=== PATIENT | male | born 1935 | race Caucasian/White ===

== ENCOUNTER 2020-07-24 19:05 | Emergency (ER) | payer MEDICARE, SELFPAY ==
[2020-07-24 19:05] VITALS: BP 159/80; PULSE 80; RESP 13; TEMP 36.8; O2SAT 96
--- NOTE | 2020-07-24 19:10 | ECG_ITS ---
Measurements Intervals [place] Rate: 77 P: NM: 0 QRS: -43 QRSD: 97 T: 0 QT: 178 QTc: 202 Interpretive Statements SINUS RHYTHM WITH FIRST DEGREE AV BLOCK VENTRICULAR BIGEMINY LEFT AXIS DEVIATION RSR' IN V1 OR V2, CONSIDER RIGHT VENTRICULAR HYPERTROPHY OR RIGHT VCD BORDERLINE ST-T WAVE ABNORMALITY- DIFFUSE LEADS BASELINE ARTIFACT- V3 ABNORMAL ECG Electronically Signed On 07-28-2020 13:25:08 CHARGE AUTHORIZER by Modesto Hanna D.O.
--- NOTE | 2020-07-24 19:38 | ED.GENADULT ---
HPI - General Adult General Chief complaint: Unspecified Stated complaint: AMS? Time Seen by Provider: 07/24/20 19:14 Source: patient Mode of arrival: EMS Limitations: no limitations History of Present Illness HPI narrative: Patient is 85 years old white male brought to the emergency room by police because he was driving [place] over the [place]. Patient brought his to our emergency room yesterday for transfer to [facility]. Patient stayed with his at [facility] since. He is telling me that he did not sleep for the last [address] back home from [facility] he got sleepy and was not able to control his driving. Currently patient is awake, alert and oriented x4, declined any lab work-up or any further evaluation. Patient also declined to call his children. Patient denies any fever, chills, nausea, vomiting, chest pain, shortness of breath, back pain, headache, sore throat or any symptoms. Patient is telling me that he uses a walker sometime, and his gait is not perfect because of his age and because of chronic arthritis. Patient would like to go home to get some sleep so can go back to visit his tomorrow. Currently patient on aspirin. Related Data Home Medications Medication Instructions Recorded Confirmed aspirin 81 mg tablet,delayed 81 mg PO DAILY 06/29/19 05/26/20 release furosemide 20 mg tablet 20 mg PO QAM 06/29/19 05/26/20 latanoprost 0.005 % eye drops 1 drop EACH EYE DAILY 06/29/19 05/26/20 ophthalmic irrigation solution drop EACH EYE 06/29/19 05/26/20 drops prednisone 5 mg tablet 5 mg PO DAILY 06/29/19 05/26/20 pyridostigmine bromide 60 mg tablet 60 mg PO BID 06/29/19 05/26/20 rosuvastatin 40 mg tablet 40 mg PO DAILY 06/29/19 05/26/20 Allergies Allergy/AdvReac Type Severity Reaction Status Date / Time No Known Allergies Allergy Mild Verified 05/26/20 15:12 Review of Systems Review of Systems: Narrative: CONSTITUTIONAL: Denies fever, chills, or sweats. EYES: Denies visual changes, redness, or discharge. ENT: Denies rhinorrhea, congestion, sore throat, or otalgia. CARDIOVASCULAR: Denies chest pain, palpitations, or edema. RESPIRATORY: Denies cough or dyspnea. GASTROINTESTINAL: Denies abdominal pain, nausea, vomiting, or diarrhea. GENITOURINARY: Denies dysuria or hematuria. SKIN: Denies rash or itching. MUSCULOSKELETAL: Denies back pain, joint pain, or myalgia. NEUROLOGIC: Denies headache, numbness, or weakness. PSYCHIATRIC: Denies anxiety or depression. 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 heart disease of [place] coronary artery without angina pectoris CAD (coronary artery disease) Chronic hypertension Hesitancy of micturition Impaired fasting glucose Mixed hyperlipidemia Myasthenia gravis Personal history of other diseases of the nervous system and sense organs Polyosteoarthritis, unspecified Surgical History Surgical History History of total knee arthroplasty S/P TURP Social History Social History Social History: Smoking status: Former smoker Second hand tobacco smoke exposure: No Smoking end date: 07/08/90 Alcohol intake: never Substance use: never Substance use type: does not use Gender identity (if verbalized by the patient): Male Exam Narrative: Exam Narrative: General appearance: Well-developed, well-nourished Skin: Normal color, 1+ edema lower extremity bilaterally Head: Normocephalic, nontraumatic Eyes: Clear conjunctiva ENT: Oropharynx normal, ears normal, nose normal Neck: Supple, nontender Chest and respiratory: Airway patent, no respiratory distress, no accessory muscle use Heart: irRegular heart rate Abdomen: Soft, nontender, no organomegaly, quiet bowel sounds Vascular: Normal periph
[2020-07-24 19:45] VITALS: BP 173/68; PULSE 80; RESP 17; TEMP 36.8; O2SAT 99
[2020-07-24 20:13] VITALS: BP 158/80; PULSE 71; RESP 19; TEMP 36.6; O2SAT 98
--- NOTE | 2020-07-24 20:14 | PC.NURSE ---
[employer] called and they state approximately 30 minute ETA to pick patient up at the ED to take him home.
== END 2020-07-24 20:24 | disposition left against medical advice (07) ==
PROVIDERS: Emergency Provider Emergency Medicine; PCP Family Medicine
DX: Z72.820 Sleep deprivation (principal); I25.10 Atherosclerotic heart disease of native coronary artery without angina pectoris; I10 Essential (primary) hypertension; E78.2 Mixed hyperlipidemia; G70.00 Myasthenia gravis without (acute) exacerbation; M19.90 Unspecified osteoarthritis, unspecified site; Z96.659 Presence of unspecified artificial knee joint; Z87.891 Personal history of nicotine dependence; I44.0 Atrioventricular block, first degree; R00.8 Other abnormalities of heart beat; R94.31 Abnormal electrocardiogram [ECG] [EKG]; Z79.82 Long term (current) use of aspirin
CPT/HCPCS: 93005; 99281; 99283

== ENCOUNTER 2021-10-19 18:11 | Emergency (ER) | payer MEDICARE, SELFPAY ==
[2021-10-19 18:33] VITALS: BP 133/80; PULSE 98; RESP 16; TEMP 36.4; O2SAT 100
--- NOTE | 2021-10-19 18:36 | ED.WOUNDLAC ---
HPI - Wound/Laceration General Chief Complaint: Wound/Laceration Stated Complaint: Left Leg Lac - glass Time Seen by Provider: 10/19/21 18:36 Source: patient Mode of arrival: ambulatory Limitations: no limitations History of Present Illness HPI narrative: 86-year-old with a history of hypertension, CAD, on Eliquis, myasthenia gravis here with complaints of laceration to his left leg sustained prior to coming to the ER. He states that he broke a bottle and he accidentally cut himself. He drove himself to the ER. Onset (ago): hour(s) (1) Extremity Location: Left: lower leg Place: home Context: accidental Associated symptoms: none Related Data Home Medications Medication Instructions Recorded Confirmed aspirin 81 mg tablet,delayed 81 mg PO DAILY 06/29/19 05/28/21 release furosemide 20 mg tablet 20 mg PO QAM 06/29/19 05/28/21 latanoprost 0.005 % eye drops 1 drop EACH EYE DAILY 06/29/19 05/28/21 ophthalmic irrigation solution drop EACH EYE 06/29/19 05/28/21 drops Allergies Allergy/AdvReac Type Severity Reaction Status Date / Time No Known Allergies Allergy Mild Verified 05/11/21 14:01 Review of Systems Review of Systems: All systems reviewed & are unremarkable except as noted in HPI and below Constitutional: Constitutional: Reports no additional constitutional complaints Eyes: Eyes: Reports no additional eye complaints ENT: Reports system reviewed and no additional complaints, except as documented Cardiovascular: Cardiovascular: Reports no additional cardiovascular complaints Respiratory: Respiratory: Reports no additional respiratory complaints Gastrointestinal: Gastrointestinal: Reports no additional gastrointestinal complaints Musculoskeletal: Musculoskeletal: Reports as per HPI Neurologic: Reports system reviewed and no additional complaints, except as documented [facility] Past Medical History Medical History 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 Atherosclerotic heart disease of [place] coronary artery without angina pectoris CAD (coronary artery disease) Chronic hypertension Hesitancy of micturition Impaired fasting glucose Mixed hyperlipidemia Myasthenia gravis Personal history of other diseases of the nervous system and sense organs Polyosteoarthritis, unspecified Surgical History Surgical History History of total knee arthroplasty S/P TURP Social History Social History Social History: Smoking status: Former smoker Tobacco type: cigarettes Second hand tobacco smoke exposure: No Smoking end date: 07/08/90 Alcohol intake: never Substance use: never Substance use type: does not use Gender identity (if verbalized by the patient): Male Sexual Orientation (if Verbalized by the Patient): Straight or Heterosexual Exam Narrative: GENERAL: Well-appearing, well-nourished, and in no acute distress. HEAD: Normocephalic, atraumatic. EYES: PERRLA and EOMI. NECK: Supple. CHEST: Clear to auscultation. No respiratory distress. HEART: Regular rate and rhythm. No murmur heard. Normal peripheral pulses. EXTREMITIES: Normal range of motion. No edema. This has a L-shaped laceration on the left lower leg with active bleeding about 3 cm in length SKIN: Warm, dry, no rash. NEURO: No focal deficits. Alert and oriented x3. PSYCH: Normal mood and affect. Procedures Laceration Laceration 1: Date: 10/19/21 Time: 18:40 Site: lower extremity (Left lower extremity) Side (If applicable): left Size (cm): 3 Description: irregular Depth: simple, single layer Local Anesthetic: lidocaine 1% and with epi Amount of anesthesia used (mL): 5 ====== Skin Level ====== Skin layer closed with: nylon Size (cm): 4-0 Technique: running
[2021-10-19 19:11] VITALS: BP 135/74; PULSE 66; RESP 18; O2SAT 98
== END 2021-10-19 19:11 | disposition home or self-care (01) ==
LOC: ANHED 18:45
PROVIDERS: Emergency Provider Family Medicine; PCP Family Medicine
DX: S81.812A Laceration without foreign body, left lower leg, initial encounter (principal); I25.10 Atherosclerotic heart disease of native coronary artery without angina pectoris; I10 Essential (primary) hypertension; R39.11 Hesitancy of micturition; M26.633 Articular disc disorder of bilateral temporomandibular joint; E78.2 Mixed hyperlipidemia; G70.00 Myasthenia gravis without (acute) exacerbation; M19.90 Unspecified osteoarthritis, unspecified site; Z96.659 Presence of unspecified artificial knee joint; Z79.82 Long term (current) use of aspirin; Z79.01 Long term (current) use of anticoagulants; W25.XXXA Contact with sharp glass, initial encounter
CPT/HCPCS: 12002; 99282

== ENCOUNTER 2021-10-31 16:47 | Outpatient (CLI) | payer MEDICARE, SELFPAY ==
[2021-10-31 17:26] LABS: Basophils Absolute Auto 0.1 K/mm3 (0.0-0.1); Basophils Percent Auto 0.6 % (0.2-1.2); Eosinophils Absolute Auto 0.2 K/mm3 (0-0.3); Eosinophils Percent Auto 0.7 % (0-4.4); Hematocrit 33.5 % (42.0-52.0); Hemoglobin 11.2 g/dL (14.0-18.0); Immature Granulocyte Absolute 0.36 K/mm3 (0.00-0.031); Immature Granulocyte Percent A 1.7 % (0-0.5); Lymphocytes Absolute Auto 0.29 K/mm3 (0.9-3.2); Lymphocytes Percent Auto 1.4 % (18.3-44.2); Mean Corpuscular HGB Conc 33.4 g/dl (32-36); Mean Corpuscular Hemoglobin 35.8 pg (26-34); Mean Platelet Volume 10.6 fl (7.4-10.4); Monocytes Absolute Auto 0.4 K/mm3 (0.1-0.6); Monocytes Percent Auto 2.1 % (2.6-8.5); Neutrophils Absolute Auto 19.3 K/mm3 (1.3-6.7); Neutrophils Percent Auto 93.5 % (45.5-73.1); Platelet Count Result 175 k/mm3 (150-375); Red Blood Count 3.13 M/mm3 (4.6-6.20); White Blood Count 20.6 K/mm3 (4.5-10.0)
[2021-10-31 17:37] LABS: Ovalocytes 1+ (NORMAL); Platelet Estimate Adequate (Adequate)
[2021-10-31 17:38] LABS: Alanine Aminotransferase 19 U/L (4-50); Albumin Level 3.3 g/dL (3.5-5.1); Alkaline Phosphatase 113 U/L (38-126); Anion Gap 9 mmol/L (8-16); Aspartate Amino Transferase 24 U/L (17-59); Bilirubin,Total 0.7 mg/dL (0.2-1.3); Blood Urea Nitrogen 60 mg/dL (9-20); Burr Cells 1+ (NORMAL); Carbon Dioxide 21 mmol/L (22-30); Chloride 105 mmol/L (98-107); Estimated Glomerular Filt Rate 41; Glucose 162 mg/dL (65-110); Potassium 4.2 mmol/L (3.4-5.0); Sodium 135 mmol/L (137-145)
[2021-10-31 17:41] LABS: Add Urine Microscopic? YES; Amorphous Sediment Urine Few; Appearance Urine Turbid (Clear); Bacteria Urine 1+ /hpf; Bilirubin Urine Negative (Negative); Blood Urine 1+ (Negative); Color Urine Amber (Yellow); Glucose Urine UA Negative (Negative); Ketones Urine Negative (Negative); Leukocyte Esterase Ur 3+ LEU/UL (Negative); Nitrate Urine Negative (Negative); Protein Urine 2+ mg/dL (Negative); Specific Grav Ur 1.017 (1.001-1.035); Squamous Epithelial Cell Urine Occasional /hpf (Few); Urobilinogen Urine Negative mg/dL (<2.0); WBC Clumps Urine Present /HPF; WBC Urine >75 /hpf
[2021-10-31 18:08] LABS: Thyroid Stimulating Hormone 0.962 uIU/mL (0.465-4.680); Total Triiodothyronine (T3) 0.53 NG/ML (0.97-1.69)
[2021-10-31 18:26] LABS: Free T4 Free Thyroxine 1.73 ng/mL (0.78-2.19)
== END 2021-10-31 16:48 | disposition home or self-care (01) ==
PROVIDERS: PCP Family Medicine; Visit Provider Nurse Practitioner Gerontology
DX: E78.2 Mixed hyperlipidemia (principal); E87.6 Hypokalemia; I25.10 Atherosclerotic heart disease of native coronary artery without angina pectoris; I10 Essential (primary) hypertension; R31.9 Hematuria, unspecified
CPT/HCPCS: 36415; 80053; 81001; 84439; 84443; 84480; 85025; 87077; 87086; 87088; 87186

== ENCOUNTER 2021-11-01 15:46 | Inpatient (IN) | payer MEDICARE, SELFPAY ==
[2021-11-01] VITALS (10 sets, daily range): BP systolic 100–153; BP diastolic 56–95; PULSE 61–99; RESP 16–23; TEMP 36.5–36.6; O2SAT 90–99; BMI 23.8
--- NOTE | ~2021-11-01 | CT_ITS ---
EXAMINATION: CT brain wo con INDICATION: Head injury COMPARISON: None TECHNIQUE: Standard unenhanced head CT. The dose-length product (DLP) was 605.33 mGy-cm. The mA was a djusted according to patient size. Iterative reconstruction technique was employed. FINDINGS: There is no acute intraparenchymal hemorrhage. No evidence of mass lesion. No evidence of a cute infarction. There is mild periventricular and subcortical hypodensity probably related to small vessel ischemic disease. There is mild prominence of the sulci and ventricles related to cerebral atr ophy. Intracranial calcified cerebral atherosclerosis is noted. There are no extra-axial collections. There is no mass effect or midline shift. Changes in the globes are likely from ocular lens surgery. There is mild mucosal thickening of the paranasal sinuses. IMPRESSION: 1. No acute intracranial abnormality. 2. Age related findings. Reviewed, dictated and finalized at location F.
--- NOTE | ~2021-11-01 | XR_ITS ---
EXAMINATION: XR lumbar spine min 4V DATE: 11/01/2021 19:53 INDICATION: Low back pain TECHNIQUE: Anteroposterior, lateral, and bilateral oblique views of the lumbar spine, and cone-down l ateral view of the lumbosacral junction were obtained. COMPARISON: None. FINDINGS: Lumbar dextrocurvature is noted. There is moderate to severe loss of intervertebral disc sp january height throughout the lumbar spine. There are 2 mm of retrolisthesis of L1 on L2 and L3 on L4. Th e vertebral body heights appear to be maintained. No fracture is identified. There is moderate osteoa rthritis of the hips. There is severe multilevel facet osteoarthritis. IMPRESSION: 1. Moderate to severe lumbar spondylosis without acute findings. Reviewed, dictated and finalized at location F.
--- NOTE | ~2021-11-01 | US_ITS ---
EXAMINATION: US renal BI DATE: 11/03/2021 11:01 INDICATION: Acute kidney injury. TECHNIQUE: Multiple ultrasound grayscale images of the kidneys were obtained. COMPARISON: None. FINDINGS: The right kidney measures 10.8 x 5.4 x 5.5 cm. The left kidney measures 11.3 x 6.1 x 6.5 cm. The kidn eys demonstrate normal parenchymal echogenicity. There is no hydronephrosis. The bladder is normal. IMPRESSION: 1. Normal kidneys. No hydronephrosis. Reviewed, dictated and finalized at location A.
--- NOTE | ~2021-11-01 | XR_ITS ---
EXAMINATION: XR chest 1V portable DATE: 11/06/2021 04:04 INDICATION: Shortness of breath TECHNIQUE: frontal view of the chest was obtained. COMPARISON: 11/03/2021 FINDINGS: Cardiomegaly with pulmonary vascular congestion. Opacities in the bilateral mid and lower lung zones correspond to small bilateral pleural effusions with associated basilar atelectasis and/or pneumonia. No pneumothorax. There are bridging osteophytes at multiple levels in the spine, consistent with dif fuse idiopathic skeletal hyperostosis (DISH). IMPRESSION: 1. Small bilateral pleural effusions with associated bibasilar atelectasis and/or pneumonia. 2. Cardiomegaly with pulmonary vascular congestion. Reviewed, dictated and finalized at location A. IMPRESSION: 1. Small bilateral pleural effusions with associated bibasilar atelectasis and/ or pneumonia. 2. Cardiomegaly with pulmonary vascular congestion.
--- NOTE | ~2021-11-01 | CT_ITS ---
EXAMINATION: CT cervical spine wo con DATE: 11/01/2021 19:34 INDICATION: Head injury TECHNIQUE: Computed tomography (CT) of the cervical spine was performed without intravenous contrast. The dose-length product (DLP) was 370.58 mGy-cm. Automated exposure control and iterative reconstruc tion technique were employed. COMPARISON: None FINDINGS: There is no fracture. There are 2 mm of anterolisthesis of C2 on C3 and 2 mm of retrolisthe sis of C3 on C4. There is moderate loss of intervertebral disc space height at C3-4 through C5-6 and severe loss of disc space height at C7-T1. The odontoid is intact. The prevertebral soft tissues are normal. There is severe multilevel facet and uncovertebral joint osteoarthritis. IMPRESSION: 1. Severe cervical spondylosis without acute findings. Reviewed, dictated and finalized at location F.
--- NOTE | ~2021-11-01 | XR_ITS ---
EXAMINATION: XR chest 1V portable DATE: 11/03/2021 18:08 INDICATION: Productive cough TECHNIQUE: frontal view of the chest was obtained. COMPARISON: None FINDINGS: Patient is rotated towards the left. Elevation the left hemidiaphragm. Airspace opacities in the bila teral lower lung. Blunting at the bilateral costophrenic angles consistent with small bilateral pleur al effusions. No pneumothorax. The cardiomediastinal silhouette is within normal limits for AP techni que. Pulmonary vascular congestion. IMPRESSION: 1. Small bilateral pleural effusions with associated basilar atelectasis and/or pneumonia. 2. Elevation the left hemidiaphragm. Reviewed, dictated and finalized at location A.
[2021-11-01] MEDS: MORPHINE SULFATE (*CRX) 4 MG/ML INJ IV PUSH ×2 (19:58→21:10)
[2021-11-01] MEDS: ONDANSETRON INJ 4 MG/2 ML VIAL IV PUSH (19:58)
[2021-11-01] MEDS: SODIUM CHLORIDE 0.9% IV 1,000 ML 150 ML IV CONT (20:32)
[2021-11-01 20:35] LABS: Hematocrit 33.5 % (42.0-52.0); Hemoglobin 11.3 g/dL (14.0-18.0); Mean Corpuscular HGB Conc 33.7 g/dl (32-36); Mean Corpuscular Hemoglobin 35.4 pg (26-34); Platelet Count Result 152 k/mm3 (150-375); Red Blood Count 3.19 M/mm3 (4.6-6.20); Red Cell Distribution Width 16.1 % (11.5-14.5); White Blood Count 17.9 K/mm3 (4.5-10.0)
[2021-11-01 20:44] LABS: Alanine Aminotransferase 19 U/L (4-50); Albumin Level 2.9 g/dL (3.5-5.1); Alkaline Phosphatase 125 U/L (38-126); Anion Gap 5 mmol/L (8-16); Aspartate Amino Transferase 28 U/L (17-59); Bilirubin,Total 0.7 mg/dL (0.2-1.3); Blood Urea Nitrogen 76 mg/dL (9-20); Calcium 8.7 mg/dL (8.4-10.2); Carbon Dioxide 27 mmol/L (22-30); Chloride 103 mmol/L (98-107); Estimated CRCL calculation 33 ml/min; Estimated Glomerular Filt Rate 44; Glucose 130 mg/dL (65-110); Potassium 4.1 mmol/L (3.4-5.0); Sodium 135 mmol/L (137-145)
[2021-11-01 20:46] LABS: Lactic Acid Reflex 1.2 mmol/L (0.7-2.0)
--- NOTE | 2021-11-01 21:01 | PC.NURSE ---
vrbo 4mg morphine iv push per erp dr. jang
[2021-11-01 21:05] LABS: Band Neutrophils Percent 20 % (0-6); Lymphocytes Absolute Manual 1.43 K/mm3 (1.1-4.5); Monocytes Absolute Manual 0.71 K/mm3 (0.1-0.90); Monocytes Percent Manual 4 % (3-9); Neutrophils Absolute Manual 15.75 K/mm3 (1.3-6.7); Neutrophils Percent Manual 68 % (46-73); Platelet Estimate Adequate (Adequate); Total Cells Counted 100
[2021-11-01 21:06] LABS: Anisocytosis 2+ (NORMAL)
--- NOTE | 2021-11-01 21:22 | ED.GENADULT ---
HPI - General Adult General Chief complaint: Unspecified Stated complaint: fall 2 days ago, back pain Time Seen by Provider: 11/01/21 19:01 Source: patient Mode of arrival: ambulatory Limitations: no limitations History of Present Illness HPI narrative: 86-year-old with a history of hypertension and CAD on Eliquis and myasthenia gravis here with complaints of fall. He states that he tripped on his car but fell forwards. Denies any head injuries. Complains of neck and low back pain. No history of chest pain or shortness of breath . Patient daughter calls and informs that he has a urinary tract infection. He is presently on is not on any antibiotics. Onset (ago): hour(s) (2) Location: neck and back Radiation: non-radiation Severity: moderate Quality: aching Pain Consistency: constant Relieving factors: none Exacerbating factors: none Associated symptoms: denies other symptoms Related Data Home Medications Medication Instructions Recorded Confirmed aspirin 81 mg tablet,delayed 81 mg PO DAILY 06/29/19 05/28/21 release ophthalmic irrigation solution drop EACH EYE 06/29/19 05/28/21 drops apixaban [Eliquis] mg 11/01/21 cephalexin 11/01/21 latanoprost drp 11/01/21 levothyroxine 11/01/21 potassium chloride meq PO 11/01/21 rosuvastatin mg 11/01/21 tamsulosin mg PO 11/01/21 Allergies Allergy/AdvReac Type Severity Reaction Status Date / Time No Known Allergies Allergy Mild Verified 10/31/21 16:12 Review of Systems Review of Systems: All systems reviewed & are unremarkable except as noted in HPI and below Constitutional: Constitutional: Reports no additional constitutional complaints Eyes: Eyes: Reports no additional eye complaints ENT: Reports system reviewed and no additional complaints, except as documented Cardiovascular: Cardiovascular: Reports no additional cardiovascular complaints Respiratory: Respiratory: Reports no additional respiratory complaints Gastrointestinal: Gastrointestinal: Reports no additional gastrointestinal complaints Musculoskeletal: Musculoskeletal: Reports as per HPI Integumentary/Breasts: Skin/Breast: Reports system reviewed and no additional complaints, except as docu Neurologic: Reports system reviewed and no additional complaints, except as documented [facility] Past Medical History Medical History 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 Atherosclerotic heart disease of [place] coronary artery without angina pectoris CAD (coronary artery disease) Chronic hypertension Hesitancy of micturition Impaired fasting glucose Mixed hyperlipidemia Myasthenia gravis Personal history of other diseases of the nervous system and sense organs Polyosteoarthritis, unspecified Surgical History Surgical History History of total knee arthroplasty S/P TURP Social History Social History Social History: Smoking status: Former smoker Tobacco type: cigarettes Second hand tobacco smoke exposure: No Smoking end date: 07/08/90 Alcohol intake: never Substance use: never Substance use type: does not use Gender identity (if verbalized by the patient): Male Sexual Orientation (if Verbalized by the Patient): Straight or Heterosexual Exam Narrative: GENERAL: Well-appearing, well-nourished, and in no acute distress hard of hearing. HEAD: Normocephalic, atraumatic. EYES: PERRLA and EOMI. NECK: Supple. CHEST: Clear to auscultation. No respiratory distress. HEART: Regular rate and rhythm. No murmur heard. Normal peripheral pulses. ABDOMEN: Soft, nontender, nondistended, normal active bowel sounds. EXTREMITIES: Normal range of motion. No edema. SKIN: Warm, dry, no rash. NEURO: No focal deficits. Alert and oriented x3. PSYCH: Normal mood and affect. Course Course Emergency Course
--- NOTE | 2021-11-01 21:25 | PM.IMHP ---
H&P: HPI History of Present Illness Date/Time: 11/01/21 21:25 Chief Complaint: Fall Narrative: This is an 86-year-old male with past medical history significant for hypothyroidism, coronary artery disease, hypertension, mixed hyperlipidemia, tobacco dependence. Patient was brought to the emergency room for evaluation after he had a fall patient has been having diarrhea as well but no nausea or vomiting or abdominal pain bilateral lower extremity swelling and difficulty with ambulation patient denies any fevers, rigors, chills, cough, sputum production, chest pain, PND, orthopnea, no loss of consciousness. Preliminary workup was significant for urinalysis with numerous WBCs present, CBC with a leukocyte count of 18,000, creatinine of 1.6. Patient did not have any acute fractures. Decision has been made to admit the patient for further evaluation management and treatment. Review of Systems Review of Systems: Diarrhea, generalized weakness, recurrent falls, bilateral lower extremity swelling. Constitutional: Constitutional: Denies chills, Denies fatigue, Denies fever(s), Reports frequent falls, Denies malaise, Denies night sweats, Denies poor appetite and Reports weakness Eyes: Eyes: Denies change in vision ENT: Denies dysphagia, Denies vertigo, Denies nasal congestion, Denies nasal discharge, Denies nasal obstruction and Denies odynophagia Cardiovascular: Cardiovascular: Denies chest pain, Reports pedal edema, Denies irregular heart rhythm, Reports leg edema, Denies radiating jaw, neck or arm pain, Denies palpitations, Denies dyspnea, Denies dyspnea on exertion, Denies orthopnea and Denies paroxysmal nocturnal dyspnea Respiratory: Respiratory: Denies cough Gastrointestinal: Gastrointestinal: Denies abdominal pain, Reports diarrhea, Denies nausea and Denies vomiting Genitourinary: Genitourinary: Reports urinary incontinence Musculoskeletal: Musculoskeletal: Reports back pain Integumentary/Breasts: Skin/Breast: Denies rash Neurologic: Denies focal weakness and Denies Sensory deficit (Neuro) Psychiatric: Psychiatric: Reports no additional psychiatric complaints and Reports as per HPI Endocrine: Endocrine: Denies cold intolerance, Denies heat intolerance, Denies polyphagia, Denies polydipsia and Denies palpitations Hematologic/Lymphatic: Hematologic/Lymphatic: Reports no additional hematologic/lymphatic complaints and Reports as per HPI Allergic/Immunologic: Allergic/Immunologic: Reports no additional allergic/immunologic complaints and Reports as per HPI [facility] Past Medical History Medical History 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 Atherosclerotic heart disease of [place] coronary artery without angina pectoris CAD (coronary artery disease) Chronic hypertension Hesitancy of micturition Impaired fasting glucose Mixed hyperlipidemia Myasthenia gravis Personal history of other diseases of the nervous system and sense organs Polyosteoarthritis, unspecified Surgical History Surgical History History of total knee arthroplasty S/P TURP Family History Family History (Updated 11/02/21 @ 00:15 by Dinah Valle RN) Other Unknown family medical history Social History Social History Social History: Smoking status: Current some day smoker Tobacco type: cigars Second hand tobacco smoke exposure: No Smoking end date: 07/08/90 Alcohol intake: former Substance use: never Substance use type: does not use Gender identity (if verbalized by the patient): Male Sexual Orientation (if Verbalized by the Patient): Straight or Heterosexual Spiritual care concerns: No Meds Home Medications and Allergies Home Medications Medication Instructions Recorded Confirmed Type aspirin 81 mg tablet,delayed 81 mg PO DAILY 06/08
--- NOTE | 2021-11-01 23:05 | ADMGEN ---
This patient, Kerwin Ellison, was admitted to Medical Room 342-01. Patient/family oriented to hospital policies and general routines including ID bracelet, bed and alarms, visiting hours, pain management, procedures, bathroom and other care routines, personal items, smoking policy, room service/diet, and visiting hours. Information on how to activate the Rapid Response Team has been discussed. Patient/Family are encouraged to report perceived risks to care and to ask questions if they do not understand what they are told or what they should do.
[2021-11-01] MEDS: SODIUM CHLORIDE 0.9% IV 1,000 ML 75 ML IV CONT (23:25)
[2021-11-02] MEDS: LEVOTHYROXINE SODIUM 100 MCG TABLET PO (05:40)
[2021-11-02 05:50] LABS: Hematocrit 32.8 % (42.0-52.0); Hemoglobin 10.9 g/dL (14.0-18.0); Mean Corpuscular HGB Conc 33.2 g/dl (32-36); Mean Corpuscular Volume 105.5 fl (80-100); Mean Platelet Volume 10.6 fl (7.4-10.4); Platelet Count Result 129 k/mm3 (150-375); Red Blood Count 3.11 M/mm3 (4.6-6.20); Red Cell Distribution Width 16.3 % (11.5-14.5); White Blood Count 21.5 K/mm3 (4.5-10.0)
[2021-11-02 06:14] VITALS: BP 119/60; PULSE 69; RESP 18; TEMP 36.8; O2SAT 94
[2021-11-02 07:11] LABS: Atypical Lymphocytes Present; Band Neutrophils Percent 21 % (0-6); Lymphocytes Absolute Manual 0.43 K/mm3 (1.1-4.5); Metamyelocytes Percent 1 %; Monocytes Absolute Manual 0.43 K/mm3 (0.1-0.90); Monocytes Percent Manual 2 % (3-9); Neutrophils Absolute Manual 20.42 K/mm3 (1.3-6.7); Neutrophils Percent Manual 74 % (46-73); Platelet Estimate Adequate (Adequate)
[2021-11-02 07:12] LABS: Total Cells Counted 100
[2021-11-02 08:18] VITALS: O2SAT 95
[2021-11-02 08:55] LABS: Alanine Aminotransferase 19 U/L (4-50); Albumin Level 2.6 g/dL (3.5-5.1); Alkaline Phosphatase 117 U/L (38-126); Anion Gap 7 mmol/L (8-16); Aspartate Amino Transferase 25 U/L (17-59); Bilirubin,Total 0.6 mg/dL (0.2-1.3); Blood Urea Nitrogen 75 mg/dL (9-20); Calcium 8.4 mg/dL (8.4-10.2); Carbon Dioxide 23 mmol/L (22-30); Chloride 108 mmol/L (98-107); Estimated CRCL calculation 31 ml/min; Estimated Glomerular Filt Rate 41; Glucose 125 mg/dL (65-110); Magnesium 2.4 mg/dL (1.6-2.3); Potassium 4.7 mmol/L (3.4-5.0); Sodium 138 mmol/L (137-145)
[2021-11-02] MEDS: APIXABAN 5 MG TABLET PO (09:30)
[2021-11-02] MEDS: ARTIFICIAL TEARS OPHTH SOLN 15 ML BOTTLE 1 DROP EACH EYE (09:30)
[2021-11-02] MEDS: ROSUVASTATIN 10 MG TABLET PO (09:32)
[2021-11-02] MEDS: TAMSULOSIN HCL 0.4 MG CAPSULE PO (09:32)
[2021-11-02] MEDS: CYANOCOBALAMIN 1,000 MCG TABLET 1000 MCG PO (09:32)
[2021-11-02] MEDS: ASPIRIN 81 MG ENTERIC TABLET PO (09:33)
--- NOTE | 2021-11-02 12:00 | P.PNIM_ITS ---
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 without acute findings * Cervical spine shows severe cervical spondylolysis without acute findings * Pain medications on board (3) Gait abnormality: Code(s): R26.9 - Unspecified abnormalities of gait and mobility Status: Acute Assessment and Plan: * Patient was able to stand * PT and OT on board * Continue to work with patient * Will probably need placement at discharge (4) Fall: Code(s): W19.XXXA - Unspecified fall, initial encounter Status: Acute Assessment and Plan: * PT and OT * Fall precautions * Gait assessment (5) CAD (coronary artery disease): Code(s): I25.10 - Atherosclerotic heart disease of [place] coronary artery without angina pectoris Status: Acute Assessment and Plan: * Continue aspirin and Eliquis (6) Chronic hypertension: Code(s): I10 - Essential (primary) hypertension Status: Acute Assessment and Plan: * Current blood pressure 129/60 * No current home medications at this time * Trend blood pressure * Adjust therapy as indicated (7) Hypothyroid: Code(s): E03.9 - Hypothyroidism, unspecified Status: Acute Assessment and Plan: * TSH 0.962, T4 1.73, T3 0.53 * Continue home levothyroxine 100mcg PO Daily (8) SEBASTIAN (acute kidney injury): Code(s): N17.9 - Acute kidney failure, unspecified Status: Acute Assessment and Plan: * Current BUN/Cr 75/1.60 * Baseline appears to be under 1.0 * Secondary to dehydration and infection * Continue to trend Labs * Labs in the am * Avoid neprohotoxic medications Time Spent With Patient Time with patient: Greater than 35 minutes Subjective Date/time seen: 11/02/21 12:00 Interval history: Patient is very ill appearing and and is in a lot of pain. He did state that his legs have been swollen for while however he did fall and is back really hurts. He also stated that he has been incontinent for while and he does not know that he has to urinate and stated that it goes all over himself ev en after he has urinated. He denies any chest pain or shortness of breath. He also stated that he is a little tired and he has a cough. White blood cell count is elevated however complete review of systems was unable to be obtained due to patient's illness/mental status/impulsiveness. Review of Systems Review of Systems: All systems reviewed & are unremarkable except as noted in HPI and below Exam Const: General: cooperative, well developed, alert, awake, acute distress (pain related) other, anxious, ill appearing, lethargic and tired appearing Nutritional Appearance: well nourished Orientation/consciousness: oriented to person, oriented to place and confusion Limitations: no limitations HENMT: Head: no
--- NOTE | 2021-11-02 12:00 | PM.IMPN ---
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 without acute findings Cervical spine shows severe cervical spondylolysis without acute findings Pain medications on board (3) Gait abnormality: Code(s): R26.9 - Unspecified abnormalities of gait and mobility Status: Acute Assessment and Plan: Patient was able to stand PT and OT on board Continue to work with patient Will probably need placement at discharge (4) Fall: Code(s): W19.XXXA - Unspecified fall, initial encounter Status: Acute Assessment and Plan: PT and OT Fall precautions Gait assessment (5) CAD (coronary artery disease): Code(s): I25.10 - Atherosclerotic heart disease of [place] coronary artery without angina pectoris Status: Acute Assessment and Plan: Continue aspirin and Eliquis (6) Chronic hypertension: Code(s): I10 - Essential (primary) hypertension Status: Acute Assessment and Plan: Current blood pressure 129/60 No current home medications at this time Trend blood pressure Adjust therapy as indicated (7) Hypothyroid: Code(s): E03.9 - Hypothyroidism, unspecified Status: Acute Assessment and Plan: TSH 0.962, T4 1.73, T3 0.53 Continue home levothyroxine 100mcg PO Daily (8) SEBASTIAN (acute kidney injury): Code(s): N17.9 - Acute kidney failure, unspecified Status: Acute Assessment and Plan: Current BUN/Cr 75/1.60 Baseline appears to be under 1.0 Secondary to dehydration and infection Continue to trend Labs Labs in the am Avoid neprohotoxic medications Time Spent With Patient Time with patient: Greater than 35 minutes Subjective Date/time seen: 11/02/21 12:00 Interval history: Patient is very ill appearing and and is in a lot of pain. He did state that his legs have been swollen for while however he did fall and is back really hurts. He also stated that he has been incontinent for while and he does not know that he has to urinate and stated that it goes all over himself even after he has urinated. He denies any chest pain or shortness of breath. He also stated that he is a little tired and he has a cough. White blood cell count is elevated however complete review of systems was unable to be obtained due to patient's illness/mental status/impulsiveness. Review of Systems Review of Systems: All systems reviewed & are unremarkable except as noted in HPI and below Exam Const: General: cooperative, well developed, alert, awake, acute distress (pain related) other, anxious, ill appearing, lethargic and tired appearing Nutritional Appearance: well nourished Orientation/consciousness: oriented to person, oriented to place and confusion Limitations: no limitations HENMT: Head: normal to inspection Ears: hearing grossly normal bilaterally General nose exam: Normal external nose present Mouth: Yes Normal oral and palatal mucosa present, Yes lip normal and Yes tongue normal Teeth and gingiva: abnormal tooth and associated gingiva and poor dentition Eyes: General: appearance normal, both eyes and all related structures Neck: Neck: normal visual inspection, full ROM, trachea midline and supple Resp: Effort & Inspection: normal respiratory effort and able to speak in complete sentences Auscultation: clear to auscultation bilaterally Cardio: Jugular venous distensi
[2021-11-02] MEDS: SODIUM CHLORIDE 0.9% IV 1,000 ML 75 ML IV CONT (13:19)
[2021-11-02 14:00] VITALS: BP 129/60; PULSE 60; RESP 18; TEMP 36.8; O2SAT 98
[2021-11-02] MEDS: HYDROcodone/acetaminophen (*CRX) 5-325 MG TABLET 1 TAB PO (17:50)
[2021-11-02 19:32] VITALS: BP 126/60; PULSE 61; RESP 16; TEMP 36.4; O2SAT 94
[2021-11-02] MEDS: LATANOPROST 0.005% OP SOLN 2.5 ML BTL 1 DROP EACH EYE (20:50)
[2021-11-03] MEDS: HYDROcodone/acetaminophen (*CRX) 5-325 MG TABLET 1 TAB PO ×3 (04:06→21:00)
[2021-11-03] MEDS: LEVOTHYROXINE SODIUM 100 MCG TABLET PO (04:07)
[2021-11-03] MEDS: SODIUM CHLORIDE 0.9% IV 1,000 ML 75 ML IV CONT (04:07)
[2021-11-03 05:44] VITALS: BP 130/75; PULSE 66; RESP 16; TEMP 36.8; O2SAT 92
[2021-11-03 05:52] LABS: Hematocrit 31.2 % (42.0-52.0); Hemoglobin 10.9 g/dL (14.0-18.0); Immature Platelet Fraction Pct 5.5 % (0.9-11.2); Mean Corpuscular HGB Conc 34.9 g/dl (32-36); Mean Corpuscular Hemoglobin 35.3 pg (26-34); Mean Platelet Volume 11.6 fl (7.4-10.4); Platelet Count Result 125 k/mm3 (150-375); Red Blood Count 3.09 M/mm3 (4.6-6.20); Red Cell Distribution Width 16.6 % (11.5-14.5)
[2021-11-03 06:03] LABS: Alanine Aminotransferase 17 U/L (4-50); Albumin Level 2.4 g/dL (3.5-5.1); Alkaline Phosphatase 114 U/L (38-126); Anion Gap 7 mmol/L (8-16); Aspartate Amino Transferase 31 U/L (17-59); Bilirubin,Total 0.7 mg/dL (0.2-1.3); Blood Urea Nitrogen 79 mg/dL (9-20); Calcium 8.1 mg/dL (8.4-10.2); Carbon Dioxide 24 mmol/L (22-30); Chloride 106 mmol/L (98-107); Estimated CRCL calculation 29 ml/min; Estimated Glomerular Filt Rate 38; Glucose 125 mg/dL (65-110); Magnesium 2.4 mg/dL (1.6-2.3); Potassium 4.1 mmol/L (3.4-5.0); Sodium 137 mmol/L (137-145)
[2021-11-03 07:19] LABS: Band Neutrophils Percent 2 % (0-6); Lymphocytes Absolute Manual 0.54 K/mm3 (1.1-4.5); Monocytes Absolute Manual 0.72 K/mm3 (0.1-0.90); Monocytes Percent Manual 4 % (3-9); Neutrophils Absolute Manual 16.74 K/mm3 (1.3-6.7); Neutrophils Percent Manual 91 % (46-73); Platelet Estimate Adequate (Adequate); Total Cells Counted 100
[2021-11-03 07:20] LABS: Acanthocytes 1+ (NORMAL)
[2021-11-03 07:21] LABS: Poikilocytosis 1+ (NORMAL)
[2021-11-03 07:40] VITALS: O2SAT 95
[2021-11-03] MEDS: CYANOCOBALAMIN 1,000 MCG TABLET 1000 MCG PO (08:36)
[2021-11-03] MEDS: ARTIFICIAL TEARS OPHTH SOLN 15 ML BOTTLE 1 DROP EACH EYE (08:36)
[2021-11-03] MEDS: ROSUVASTATIN 10 MG TABLET PO (08:36)
[2021-11-03] MEDS: TAMSULOSIN HCL 0.4 MG CAPSULE PO (08:36)
[2021-11-03] MEDS: APIXABAN 5 MG TABLET PO (08:36)
[2021-11-03] MEDS: ASPIRIN 81 MG ENTERIC TABLET PO (08:36)
[2021-11-03 08:54] VITALS: BP 133/69; PULSE 60; RESP 14; TEMP 36.1; O2SAT 95
--- NOTE | 2021-11-03 09:09 | PCOTNOTE ---
Attempted to see patient for OT evaluation this AM. Patient very lethargic and having difficulty staying awake. Attempted to move patient toward the edge of bed, but he is participating minimally. Reporting severe back and knee pain. RN just administered medications. Will continue to attempt.
[2021-11-03] MEDS: SILVERGEL (ELTA) 45 ML 1 APPLIC TOPICAL (10:25)
--- NOTE | 2021-11-03 11:14 | PCSTNOTE ---
Please refer to the Bedside Swallow Evaluation in the EMR. Please note, silent aspiration cannot be ruled out at bedside.
[2021-11-03 14:00] VITALS: BP 142/69; PULSE 71; RESP 20; TEMP 36.4; O2SAT 92
--- NOTE | 2021-11-03 14:04 | P.PNIM_ITS ---
Progress Note: A&P Assessment and Plan (1) Fall: Code(s): W19.XXXA - Unspecified fall, initial encounter Status: Acute Assessment and Plan: Patient fell out of his bed. Fall unwitnessed and unclear mechanics, unknown how long patient was down. Denies precipitating symptoms dizziness or lightheadedness. * Complains of back and neck pain. Cervical and lumbar CT showed no acute * Head CT also with no acute findings * Appreciate PT/OT eval * Implement fall precautions * Check CK (2) Acute UTI: Code(s): N39.0 - Urinary tract infection, site not specified Status: Acute Assessment and Plan: Urinalysis abnormal on presentation * Urine culture with growth of >100k E coli * WBC trending down today. Remains afebrile * Continue IV Rocephin based on susctepibilities (3) SEBASTIAN (acute kidney injury): Code(s): N17.9 - Acute kidney failure, unspecified Status: Acute Assessment and Plan: Creatinine 1 year ago was 0.9 * Elevated at presentation at 1.5, increased to 1.7 today * Renal ultrasound showed normal kidneys without evidence of hydronephrosis * Likely prerenal in etiology. Continue IV hydration. Monitor volume status closely given history of CHF (4) CAD (coronary artery disease): Code(s): I25.10 - Atherosclerotic heart disease of [place] coronary artery without angina pectoris Status: Acute Assessment and Plan: No chest pain Continue home meds Continue to monitor (5) Chronic hypertension: Code(s): I10 - Essential (primary) hypertension Status: Acute Assessment and Plan: Continue home meds Continue to monitor (6) Cervical muscle strain: Qualifiers: Encounter type: initial encounter Qualified Code(s): S16.1XXA - Strain of muscle, fascia and tendon at neck level, initial encounter Code(s): S16.1XXA - Strain of muscle, fascia and tendon at neck level, initial encounter Status: Acute Assessment and Plan: Likely secondary to fall * 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 Analgesics, ice, heat as needed (7) Dysphagia: Code(s): R13.10 - Dysphagia, unspecified Status: Acute Assessment and Plan: Patient noted to have dysphagia with liquids and with medications today by RN * Bedside swallow study completed by speech therapy * He had delayed swallow reflex and cough with consistencies * At this time, NPO diet is recommended * Plan for repeat bedside swallow study and/or MBS as strength improves * Will obtain CXR given complaints of cough to evaluate for aspiration pneumonia Subjective Date/time seen: 11/03/21 14:04 Interval history: Date of service: 11/03/2021 Kerwin Ellison is 86-year-old male with a history of hypertension, coronary artery disease, CHF, hypothyroidism, and atrial fibrillation on chronic anticoagulation who is seen in follow-up after a fall. He feels very weak today. He also endorses neck pain which he rates as 10/10 with any movements. States it feels like ?someone is twisting me.? Also complains of back pain all over. He cannot elaborate on this any further. He denies dizziness or lightheadedness. He does endorse productive cough. He states nothing has helped this. Denies shortness of breath, chest pain, palpitations. No fevers or chills. He does endorse dysphagia but again has difficulty describing this.
--- NOTE | 2021-11-03 14:04 | PM.IMPN ---
Progress Note: A&P Assessment and Plan (1) Fall: Code(s): W19.XXXA - Unspecified fall, initial encounter Status: Acute Assessment and Plan: Patient fell out of his bed. Fall unwitnessed and unclear mechanics, unknown how long patient was down. Denies precipitating symptoms dizziness or lightheadedness. Complains of back and neck pain. Cervical and lumbar CT showed no acute Head CT also with no acute findings Appreciate PT/OT eval Implement fall precautions Check CK (2) Acute UTI: Code(s): N39.0 - Urinary tract infection, site not specified Status: Acute Assessment and Plan: Urinalysis abnormal on presentation Urine culture with growth of >100k E coli WBC trending down today. Remains afebrile Continue IV Rocephin based on susctepibilities (3) SEBASTIAN (acute kidney injury): Code(s): N17.9 - Acute kidney failure, unspecified Status: Acute Assessment and Plan: Creatinine 1 year ago was 0.9 Elevated at presentation at 1.5, increased to 1.7 today Renal ultrasound showed normal kidneys without evidence of hydronephrosis Likely prerenal in etiology. Continue IV hydration. Monitor volume status closely given history of CHF (4) CAD (coronary artery disease): Code(s): I25.10 - Atherosclerotic heart disease of [place] coronary artery without angina pectoris Status: Acute Assessment and Plan: No chest pain Continue home meds Continue to monitor (5) Chronic hypertension: Code(s): I10 - Essential (primary) hypertension Status: Acute Assessment and Plan: Continue home meds Continue to monitor (6) Cervical muscle strain: Qualifiers: Encounter type: initial encounter Qualified Code(s): S16.1XXA - Strain of muscle, fascia and tendon at neck level, initial encounter Code(s): S16.1XXA - Strain of muscle, fascia and tendon at neck level, initial encounter Status: Acute Assessment and Plan: Likely secondary to fall 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 Analgesics, ice, heat as needed (7) Dysphagia: Code(s): R13.10 - Dysphagia, unspecified Status: Acute Assessment and Plan: Patient noted to have dysphagia with liquids and with medications today by RN Bedside swallow study completed by speech therapy He had delayed swallow reflex and cough with consistencies At this time, NPO diet is recommended Plan for repeat bedside swallow study and/or MBS as strength improves Will obtain CXR given complaints of cough to evaluate for aspiration pneumonia Subjective Date/time seen: 11/03/21 14:04 Interval history: Date of service: 11/03/2021 Kerwin Ellison is 86-year-old male with a history of hypertension, coronary artery disease, CHF, hypothyroidism, and atrial fibrillation on chronic anticoagulation who is seen in follow-up after a fall. He feels very weak today. He also endorses neck pain which he rates as 10/10 with any movements. States it feels like ?someone is twisting me.? Also complains of back pain all over. He cannot elaborate on this any further. He denies dizziness or lightheadedness. He does endorse productive cough. He states nothing has helped this. Denies shortness of breath, chest pain, palpitations. No fevers or chills. He does endorse dysphagia but again has difficulty describing this. He says this only occurs if he tries to eat too much at once. He is very hard of hearing. Review of Systems Review of Systems: All systems reviewed & are unremarkable except as noted in HPI and below Exam Narrative: General: Thin, chronically ill-appearing 86 year-old male, semi recumbent in bed, appears comfortable, NARD Neuro: awake, alert and oriented x4, speech clear, no focal neuro def
[2021-11-03 16:40] LABS: Creatine Kinase 26 U/L (55-170)
[2021-11-03 19:55] VITALS: BP 148/73; PULSE 67; RESP 18; TEMP 36.6; O2SAT 95
[2021-11-03] MEDS: LATANOPROST 0.005% OP SOLN 2.5 ML BTL 1 DROP EACH EYE (22:32)
[2021-11-04 04:07] VITALS: BP 148/74; PULSE 108; RESP 20; TEMP 36.6; O2SAT 94
[2021-11-04 04:13] VITALS: O2SAT 93
[2021-11-04] MEDS: SODIUM CHLORIDE 0.9% IV 1,000 ML 75 ML IV CONT (04:35)
[2021-11-04 05:55] LABS: Basophils Percent Auto 0.2 % (0.2-1.2); Eosinophils Percent Auto 0.3 % (0-4.4); Hematocrit 33.5 % (42.0-52.0); Hemoglobin 11.5 g/dL (14.0-18.0); Immature Granulocyte Percent A 1.4 % (0-0.5); Lymphocytes Absolute Auto 0.65 K/mm3 (0.9-3.2); Lymphocytes Percent Auto 4.6 % (18.3-44.2); Mean Corpuscular HGB Conc 34.3 g/dl (32-36); Mean Corpuscular Hemoglobin 34.1 pg (26-34); Mean Corpuscular Volume 99.4 fl (80-100); Mean Platelet Volume 11.1 fl (7.4-10.4); Neutrophils Absolute Auto 12.2 K/mm3 (1.3-6.7); Neutrophils Percent Auto 86.5 % (45.5-73.1); Platelet Count Result 144 k/mm3 (150-375); Red Blood Count 3.37 M/mm3 (4.6-6.20); Red Cell Distribution Width 16.7 % (11.5-14.5); White Blood Count 14.1 K/mm3 (4.5-10.0)
[2021-11-04 06:13] LABS: Anion Gap 9 mmol/L (8-16); Blood Urea Nitrogen 77 mg/dL (9-20); Calcium 8.3 mg/dL (8.4-10.2); Carbon Dioxide 23 mmol/L (22-30); Chloride 110 mmol/L (98-107); Estimated CRCL calculation 29 ml/min; Estimated Glomerular Filt Rate 38; Glucose 103 mg/dL (65-110); Potassium 3.9 mmol/L (3.4-5.0); Sodium 142 mmol/L (137-145)
[2021-11-04] MEDS: LEVOTHYROXINE SODIUM INJ 100 MCG/5 ML VIAL 50 MCG IV PUSH (06:42)
[2021-11-04 07:12] LABS: Burr Cells 1+ (NORMAL); Platelet Estimate Adequate (Adequate)
[2021-11-04] MEDS: ARTIFICIAL TEARS OPHTH SOLN 15 ML BOTTLE 1 DROP EACH EYE (08:42)
[2021-11-04] MEDS: SILVERGEL (ELTA) 45 ML 1 APPLIC TOPICAL (08:42)
[2021-11-04 14:00] VITALS: BP 133/93; PULSE 63; RESP 16; TEMP 36.6; O2SAT 98
--- NOTE | 2021-11-04 15:24 | P.PNIM_ITS ---
Progress Note: A&P Assessment and Plan (1) Acute UTI: Code(s): N39.0 - Urinary tract infection, site not specified Status: Acute Assessment and Plan: Urinalysis abnormal on presentation * Urine culture with growth of >100k E coli * WBC trending down today. Remains afebrile * Transition to Unasyn for aspiration pneumonia coverage. Appropriate UTI coverage based on susceptibilities (2) SEBASTIAN (acute kidney injury): Code(s): N17.9 - Acute kidney failure, unspecified Status: Acute Assessment and Plan: Creatinine 1 year ago was 0.9 * Elevated at presentation at 1.5, increased to 1.7 today with BUN 77 * Renal ultrasound showed normal kidneys without evidence of hydronephrosis * Likely prerenal in etiology. Continue IV hydration. Monitor volume status closely given history of CHF * Patient's daughter/POA reports he was hospitalized 1 month ago due to SEBASTIAN. Will attempt to obtain records from hospitalization (3) Aspiration pneumonia: Code(s): J69.0 - Pneumonitis due to inhalation of food and vomit Status: Acute Assessment and Plan: Patient with cough and history of dysphagia * CXR on 11/03 showed airspace opacities of the bilateral lower lungs * Per RN, patient has had significant amount of thick sputum production * Will initiate IV Unasyn for coverage * Attempt to obtain sputum culture * Supportive care. Incentive spirometry and Cornet valve (4) Dysphagia: Code(s): R13.10 - Dysphagia, unspecified Status: Acute Assessment and Plan: Patient noted to have dysphagia with liquids and with medications by RN * 11/03: Bedside swallow study completed by speech therapy * He had delayed swallow reflex and cough with consistencies * At this time, NPO diet is recommended * Plan for repeat bedside swallow study and/or MBS as strength improves. Possibly repeat tomorrow based on patients mental status * Continue IV fluids while NPO * If still requiring NPO status tomorrow, will need to initiate temporary nutrition means * Patient not tolerating any PO meds. Transition necessary medications to IV (5) Confusion: Code(s): R41.0 - Disorientation, unspecified Status: Acute Assessment and Plan: Patient with increased confusion today * Etiology for this unclear * May be due to uremia: Continue with IV fluids and monitor renal function. Consider Nephrology consultation if no improvement * May be due to acute infection: Continue IV antibiotics * Obtain repeat head CT * TSH within normal limits. Check B12, folate, ammonia (6) Fall: Code(s): W19.XXXA - Unspecified fall, initial encounter Status: Acute Assessment and Plan: Patient fell out of his bed. Fall unwitnessed and unclear mechanics, unknown how long patient was down. Denies precipitating symptoms including dizziness or lightheadedness. * Complains of back and neck pain. 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
--- NOTE | 2021-11-04 15:24 | PM.IMPN ---
Progress Note: A&P Assessment and Plan (1) Acute UTI: Code(s): N39.0 - Urinary tract infection, site not specified Status: Acute Assessment and Plan: Urinalysis abnormal on presentation Urine culture with growth of >100k E coli WBC trending down today. Remains afebrile Transition to Unasyn for aspiration pneumonia coverage. Appropriate UTI coverage based on susceptibilities (2) SEBASTIAN (acute kidney injury): Code(s): N17.9 - Acute kidney failure, unspecified Status: Acute Assessment and Plan: Creatinine 1 year ago was 0.9 Elevated at presentation at 1.5, increased to 1.7 today with BUN 77 Renal ultrasound showed normal kidneys without evidence of hydronephrosis Likely prerenal in etiology. Continue IV hydration. Monitor volume status closely given history of CHF Patient's daughter/POA reports he was hospitalized 1 month ago due to SEBASTIAN. Will attempt to obtain records from hospitalization (3) Aspiration pneumonia: Code(s): J69.0 - Pneumonitis due to inhalation of food and vomit Status: Acute Assessment and Plan: Patient with cough and history of dysphagia CXR on 11/03 showed airspace opacities of the bilateral lower lungs Per RN, patient has had significant amount of thick sputum production Will initiate IV Unasyn for coverage Attempt to obtain sputum culture Supportive care. Incentive spirometry and Cornet valve (4) Dysphagia: Code(s): R13.10 - Dysphagia, unspecified Status: Acute Assessment and Plan: Patient noted to have dysphagia with liquids and with medications by RN 11/03: Bedside swallow study completed by speech therapy He had delayed swallow reflex and cough with consistencies At this time, NPO diet is recommended Plan for repeat bedside swallow study and/or MBS as strength improves. Possibly repeat tomorrow based on patients mental status Continue IV fluids while NPO If still requiring NPO status tomorrow, will need to initiate temporary nutrition means Patient not tolerating any PO meds. Transition necessary medications to IV (5) Confusion: Code(s): R41.0 - Disorientation, unspecified Status: Acute Assessment and Plan: Patient with increased confusion today Etiology for this unclear May be due to uremia: Continue with IV fluids and monitor renal function. Consider Nephrology consultation if no improvement May be due to acute infection: Continue IV antibiotics Obtain repeat head CT TSH within normal limits. Check B12, folate, ammonia (6) Fall: Code(s): W19.XXXA - Unspecified fall, initial encounter Status: Acute Assessment and Plan: Patient fell out of his bed. Fall unwitnessed and unclear mechanics, unknown how long patient was down. Denies precipitating symptoms including dizziness or lightheadedness. Complains of back and neck pain. 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 Analgesics, ice, heat as needed Subjective Date/time seen: 11/04/21 15:24 Interval history: Date of service: 11/04/2021 Kerwin Ellison is 86-year-old male with a history of hypertension, coronary artery disease, CHF, hypothyroidism, and atrial fibrillation on chronic anticoagulation who is seen in follow-u
[2021-11-04] MEDS: AMPICILLIN SULB 1.5 GM/NS 50ML 1.5 GM/50 ML VIAL IVPB ×2 (16:40→23:23)
[2021-11-04] MEDS: SODIUM CHLORIDE 0.9% IV 1,000 ML 100 ML IV CONT (16:44)
[2021-11-04 16:48] LABS: Ammonia < 9 umol/L (9-30)
[2021-11-04 18:14] LABS: Folic Acid > 20.0 ng/mL (2.76->20); Vitamin B12 > 1000.0 pg/mL (239-931)
[2021-11-04] MEDS: ENOXAPARIN 80 MG/0.8 ML SYRINGE SUB-Q (21:24)
[2021-11-04] MEDS: LATANOPROST 0.005% OP SOLN 2.5 ML BTL 1 DROP EACH EYE (21:25)
[2021-11-04 22:00] VITALS: BP 150/79; PULSE 68; RESP 20; TEMP 36; O2SAT 95
[2021-11-05] VITALS (8 sets, daily range): BP systolic 149–161; BP diastolic 84–93; PULSE 57–76; RESP 18–20; TEMP 36–36.5; O2SAT 94–99
[2021-11-05] MEDS: SODIUM CHLORIDE 0.9% IV 1,000 ML 100 ML IV CONT ×2 (04:07→13:28)
[2021-11-05] MEDS: LEVOTHYROXINE SODIUM INJ 100 MCG/5 ML VIAL 50 MCG IV PUSH (05:45)
[2021-11-05] MEDS: AMPICILLIN SULB 1.5 GM/NS 50ML 1.5 GM/50 ML VIAL IVPB ×4 (05:46→23:48)
[2021-11-05 05:52] LABS: Basophils Absolute Auto 0.1 K/mm3 (0.0-0.1); Basophils Percent Auto 0.3 % (0.2-1.2); Hematocrit 35.8 % (42.0-52.0); Immature Granulocyte Absolute 0.21 K/mm3 (0.00-0.031); Immature Granulocyte Percent A 1.3 % (0-0.5); Lymphocytes Absolute Auto 0.87 K/mm3 (0.9-3.2); Lymphocytes Percent Auto 5.3 % (18.3-44.2); Mean Corpuscular HGB Conc 33.5 g/dl (32-36); Mean Corpuscular Hemoglobin 34.4 pg (26-34); Mean Corpuscular Volume 102.6 fl (80-100); Mean Platelet Volume 11.4 fl (7.4-10.4); Monocytes Percent Auto 6.1 % (2.6-8.5); Neutrophils Absolute Auto 14.4 K/mm3 (1.3-6.7); Platelet Count Result 162 k/mm3 (150-375); Red Blood Count 3.49 M/mm3 (4.6-6.20); White Blood Count 16.6 K/mm3 (4.5-10.0)
[2021-11-05 06:02] LABS: Alanine Aminotransferase 25 U/L (4-50); Albumin Level 2.6 g/dL (3.5-5.1); Alkaline Phosphatase 148 U/L (38-126); Anion Gap 10 mmol/L (8-16); Aspartate Amino Transferase 41 U/L (17-59); Bilirubin,Total 3.5 mg/dL (0.2-1.3); Blood Urea Nitrogen 72 mg/dL (9-20); Calcium 8.2 mg/dL (8.4-10.2); Carbon Dioxide 21 mmol/L (22-30); Chloride 116 mmol/L (98-107); Estimated CRCL calculation 31 ml/min; Estimated Glomerular Filt Rate 41; Glucose 118 mg/dL (65-110); Potassium 3.9 mmol/L (3.4-5.0); Sodium 147 mmol/L (137-145)
[2021-11-05] MEDS: ENOXAPARIN 80 MG/0.8 ML SYRINGE SUB-Q (09:55)
[2021-11-05] MEDS: SILVERGEL (ELTA) 45 ML 1 APPLIC TOPICAL (09:55)
[2021-11-05] MEDS: ARTIFICIAL TEARS OPHTH SOLN 15 ML BOTTLE 1 DROP EACH EYE (09:55)
[2021-11-05 12:29] LABS: Alanine Aminotransferase 28 U/L (4-50); Albumin Level 2.8 g/dL (3.5-5.1); Alkaline Phosphatase 160 U/L (38-126); Anion Gap 6 mmol/L (8-16); Aspartate Amino Transferase 50 U/L (17-59); Bilirubin Direct 1.7 mg/dL (0-0.3); Bilirubin,Total 3.7 mg/dL (0.2-1.3); Blood Urea Nitrogen 73 mg/dL (9-20); Calcium 8.6 mg/dL (8.4-10.2); Carbon Dioxide 24 mmol/L (22-30); Chloride 119 mmol/L (98-107); Estimated CRCL calculation 31 ml/min; Estimated Glomerular Filt Rate 41; Glucose 123 mg/dL (65-110); Potassium 4.8 mmol/L (3.4-5.0); Sodium 149 mmol/L (137-145)
--- NOTE | 2021-11-05 13:55 | P.PNIM_ITS ---
Progress Note: A&P Assessment and Plan (1) Acute UTI: Code(s): N39.0 - Urinary tract infection, site not specified Status: Acute Assessment and Plan: Urinalysis abnormal on presentation * Urine culture with growth of >100k E coli * Remains afebrile. Slight increase in WBC * Continue Unasyn based on susceptibilities (2) SEBASTIAN (acute kidney injury): Code(s): N17.9 - Acute kidney failure, unspecified Status: Acute Assessment and Plan: Creatinine 1 year ago was 0.9 * Elevated at 1.6 today with BUN 73 * Renal ultrasound showed normal kidneys without evidence of hydronephrosis * Possibly prerenal in etiology. Continue IV hydration. Monitor volume status closely given history of CHF * May be due to acute infection * Patient's daughter/POA reports he was hospitalized 1 month ago due to SEBASTIAN. Records from hospitalization have been requested * Consider nephrology consultation if no further improvement (3) Aspiration pneumonia: Code(s): J69.0 - Pneumonitis due to inhalation of food and vomit Status: Acute Assessment and Plan: Patient with cough and history of dysphagia * CXR on 11/03 showed airspace opacities of the bilateral lower lungs * Per RN, patient has had significant amount of thick sputum production * Continue IV Unasyn for coverage * Sputum culture pending * Supportive care. Incentive spirometry and Cornet valve (4) Dysphagia: Code(s): R13.10 - Dysphagia, unspecified Status: Acute Assessment and Plan: Patient noted to have dysphagia with liquids and with medications by RN * 11/03: Bedside swallow study completed by speech therapy. He had delayed swallow reflex and cough with consistencies and was made * Repeat bedside swallow study today. Allow for pureed diet with moderately thickened liquids * Plan for MBS tomorrow (5) Confusion: Code(s): R41.0 - Disorientation, unspecified Status: Acute Assessment and Plan: Patient with increased confusion * Etiology for this unclear * Patient refused head CT following multiple attempts. POA agreeable to cancel CT. * Most likely due to acute infection. Plan as above. * Uremia considered however less likely. Continue to monitor labs * Ammonia, TSH, B12, folate within normal limits. * Continue to monitor mental status closely (6) Fall: Code(s): W19.XXXA - Unspecified fall, initial encounter Status: Acute Assessment and Plan: Patient fell out of his bed. Fall unwitnessed and unclear mechanics, unknown how long patient was down. Denies precipitating symptoms including dizziness or lig htheadedness. * Complains of back and neck pain. 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 Analgesics, ice, heat as needed (8) Hypernatremia: Code(s): E87.0 - Hyperosmolality
--- NOTE | 2021-11-05 13:55 | PM.IMPN ---
Progress Note: A&P Assessment and Plan (1) Acute UTI: Code(s): N39.0 - Urinary tract infection, site not specified Status: Acute Assessment and Plan: Urinalysis abnormal on presentation Urine culture with growth of >100k E coli Remains afebrile. Slight increase in WBC Continue Unasyn based on susceptibilities (2) SEBASTIAN (acute kidney injury): Code(s): N17.9 - Acute kidney failure, unspecified Status: Acute Assessment and Plan: Creatinine 1 year ago was 0.9 Elevated at 1.6 today with BUN 73 Renal ultrasound showed normal kidneys without evidence of hydronephrosis Possibly prerenal in etiology. Continue IV hydration. Monitor volume status closely given history of CHF May be due to acute infection Patient's daughter/POA reports he was hospitalized 1 month ago due to SEBASTIAN. Records from hospitalization have been requested Consider nephrology consultation if no further improvement (3) Aspiration pneumonia: Code(s): J69.0 - Pneumonitis due to inhalation of food and vomit Status: Acute Assessment and Plan: Patient with cough and history of dysphagia CXR on 11/03 showed airspace opacities of the bilateral lower lungs Per RN, patient has had significant amount of thick sputum production Continue IV Unasyn for coverage Sputum culture pending Supportive care. Incentive spirometry and Cornet valve (4) Dysphagia: Code(s): R13.10 - Dysphagia, unspecified Status: Acute Assessment and Plan: Patient noted to have dysphagia with liquids and with medications by RN 11/03: Bedside swallow study completed by speech therapy. He had delayed swallow reflex and cough with consistencies and was made Repeat bedside swallow study today. Allow for pureed diet with moderately thickened liquids Plan for MBS tomorrow (5) Confusion: Code(s): R41.0 - Disorientation, unspecified Status: Acute Assessment and Plan: Patient with increased confusion Etiology for this unclear Patient refused head CT following multiple attempts. POA agreeable to cancel CT. Most likely due to acute infection. Plan as above. Uremia considered however less likely. Continue to monitor labs Ammonia, TSH, B12, folate within normal limits. Continue to monitor mental status closely (6) Fall: Code(s): W19.XXXA - Unspecified fall, initial encounter Status: Acute Assessment and Plan: Patient fell out of his bed. Fall unwitnessed and unclear mechanics, unknown how long patient was down. Denies precipitating symptoms including dizziness or lightheadedness. Complains of back and neck pain. 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 Analgesics, ice, heat as needed (8) Hypernatremia: Code(s): E87.0 - Hyperosmolality and hypernatremia Status: Acute Assessment and Plan: Sodium 149 today Obtain urine electrolytes Lactated Ringers 75 ml/hr Recheck sodium this evening (9) Hyperbilirubinemia: Code(s): E80.6 - Other disorders of bilirubin metabolism Status: Acute Assessment and Plan: Bilirubin has been normal throughout admission, today increased to 3.7. Etiology for this is unclear Doubt obstructive etiology as LFTs a
[2021-11-05] MEDS: LACTATED RINGERS 1,000 ML 75 ML IV CONT (14:16)
[2021-11-05 15:31] LABS: Uric Acid 9.6 mg/dL (3.5-8.5)
[2021-11-05 16:33] LABS: Creatinine Urine 46.8 mg/dL
[2021-11-05 16:34] LABS: Sodium Urine Random 16 meq/L
[2021-11-05] MEDS: APIXABAN 2.5 MG TABLET PO (20:52)
[2021-11-05] MEDS: LATANOPROST 0.005% OP SOLN 2.5 ML BTL 1 DROP EACH EYE (20:52)
[2021-11-05 22:16] LABS: Sodium 146 mmol/L (137-145)
[2021-11-06] VITALS (9 sets, daily range): BP systolic 149–176; BP diastolic 78–97; PULSE 40–83; RESP 20–25; TEMP 35.7–36.7; O2SAT 77–100
--- NOTE | 2021-11-06 03:40 | ECG_ITS ---
Measurements Intervals [place] Rate: 74 P: FL: 0 QRS: -26 QRSD: 94 T: -36 QT: 385 QTc: 429 Interpretive Statements ATRIAL FLUTTER/TACHYCARDIA FREQUENT VENTRICULAR PREMATURE COMPLEXES LOW QRS VOLTAGE IN PRECORDIAL LEADS NONSPECIFIC ST & T-WAVE ABNORMALITY- HIGH LATERAL LEADS BASELINE ARTIFACT- I, II, III, V4-V6 ABNORMAL ECG Electronically Signed On 11-06-2021 6:17:29 CDT by Modesto Hanna D.O.
[2021-11-06 03:41] LABS: Alveolar/Arterial O2 Gradient 136.4 mmHg; Base Excess ABG -3.2 mEq/l (+/-2.0); Fractional Inspired Oxygen 40 %; HCO3 ABG 20.5 mEq/l (22.0-26.0); Oxygen Content ABG 17.2 %vol (16.0-22.0); Oxygen Saturation ABG 98.2 % (95.0-100.0); Oxyhemoglobin 96.9 % THb (90.0-100.0); PCO2 ABG 32.6 mmHg (35.0-45.0); PO2 ABG 111.3 mmHg (80.0-100.0); PO2 FiO2 Ratio Arterial Blood 2.78 %; Total Hemoglobin 12.5 g/dL (12.0-18.0); pH ABG 7.416 (7.350-7.450)
[2021-11-06 03:43] LABS: Device NASAL CANNULA; Modified Allen's Test Pass; Site Drawn LEFT RADIAL
--- NOTE | 2021-11-06 04:11 | PM.EVENT ---
Event Note Event Note Event Note: Nursing staff called around 330 in the morning. The patient was having decreased breath sounds and they were having difficulty picking up the patient's pulse ox. His extremities were cold. They tried to sweet pickle maker the patient's pulse ox on his ear in were unable to do so. His oxygen was increased to 5 L. they stated that his pulse was reading at 29 on the pulse oximeter but the patient's pulse was not palpated at that time. The patient's blood pressure was reportedly 59 systolic. However by the time I got to the patient's room without further intervention the patient's repeat blood pressure was 170s systolic. A stat EKG was performed which demonstrated a rate of 74 with a background rate of atrial fibrillation. Chest x-ray was performed and demonstrated improved aeration of bilateral lung ramey with what I suspect is a slight increase in pleural effusion on the right but radiologic interpretation is pending. ABG demonstrated a PO2 of 111 in subsequently the patient's supplemental oxygen was decreased down to 3 L nasal cannula. The patient had no evidence of cyanosis on exam. Lungs were clear to auscultation bilaterally at the time of my review. The patient was hallucinating. He was unable to provide me with any review of systems. He yelled at me when I palpated is pulse. His respiratory rate was in the low 20s with no accessory muscle use. 20 minute spent in critical care activities. This case had a high probability of a clinically significant, sudden, or life threatening deterioration of this patient's condition which required my full and direct attention, intervention and personal management.
--- NOTE | 2021-11-06 04:50 | PC.NURSE ---
Pt awoke gasping for air and reaching out in a panic, pt is encouraged to breathe deep through nose and out through mouth, pt is also encourage to sit up and rest on table in tripod position, pt's vital signs are taken and given to Dr. Whyte who enters stat orders (ABG, CXR, EKG, TELE W/ Cont O2). Pt's VSS after all tests are complete.
[2021-11-06] MEDS: AMPICILLIN SULB 1.5 GM/NS 50ML 1.5 GM/50 ML VIAL IVPB (05:43)
[2021-11-06 05:48] LABS: Basophils Percent Auto 0.2 % (0.2-1.2); Hematocrit 33.7 % (42.0-52.0); Hemoglobin 11.6 g/dL (14.0-18.0); Immature Granulocyte Absolute 0.22 K/mm3 (0.00-0.031); Immature Granulocyte Percent A 1.2 % (0-0.5); Lymphocytes Absolute Auto 1.09 K/mm3 (0.9-3.2); Lymphocytes Percent Auto 6.1 % (18.3-44.2); Mean Corpuscular HGB Conc 34.4 g/dl (32-36); Mean Corpuscular Hemoglobin 34.5 pg (26-34); Mean Corpuscular Volume 100.3 fl (80-100); Mean Platelet Volume 11.6 fl (7.4-10.4); Monocytes Absolute Auto 1.1 K/mm3 (0.1-0.6); Monocytes Percent Auto 6.3 % (2.6-8.5); Neutrophils Absolute Auto 15.4 K/mm3 (1.3-6.7); Neutrophils Percent Auto 86.2 % (45.5-73.1); Platelet Count Result 189 k/mm3 (150-375); Red Blood Count 3.36 M/mm3 (4.6-6.20); Red Cell Distribution Width 17.3 % (11.5-14.5); White Blood Count 17.9 K/mm3 (4.5-10.0)
[2021-11-06 06:01] LABS: Alanine Aminotransferase 34 U/L (4-50); Albumin Level 2.6 g/dL (3.5-5.1); Alkaline Phosphatase 177 U/L (38-126); Anion Gap 7 mmol/L (8-16); Aspartate Amino Transferase 53 U/L (17-59); Bilirubin,Total 3.5 mg/dL (0.2-1.3); Blood Urea Nitrogen 72 mg/dL (9-20); Calcium 8.2 mg/dL (8.4-10.2); Carbon Dioxide 22 mmol/L (22-30); Chloride 119 mmol/L (98-107); Estimated CRCL calculation 33 ml/min; Estimated Glomerular Filt Rate 44; Glucose 134 mg/dL (65-110); Potassium 3.8 mmol/L (3.4-5.0); Sodium 148 mmol/L (137-145)
[2021-11-06] MEDS: LACTATED RINGERS 1,000 ML 75 ML IV CONT (06:15)
[2021-11-06] MEDS: LEVOTHYROXINE SODIUM INJ 100 MCG/5 ML VIAL 50 MCG IV PUSH (06:15)
[2021-11-06 08:21] LABS: Lactate Dehydrogenase 493 U/L (313-618)
[2021-11-06] MEDS: FUROSEMIDE INJ 40 MG/4 ML VIAL 20 MG IV PUSH (08:36)
[2021-11-06] MEDS: ARTIFICIAL TEARS OPHTH SOLN 15 ML BOTTLE 1 DROP EACH EYE (08:42)
[2021-11-06] MEDS: SILVERGEL (ELTA) 45 ML 1 APPLIC TOPICAL (08:42)
--- NOTE | 2021-11-06 09:31 | PCOTNOTE ---
Per RN, patient refusing care. Patient states let me go home and per RN. Patient had evening event, possibly in aspirating in AM. RN recommends hold OT treatment at this time. Per RN, patient's family also to discuss hospice care. Patient not seen this date.
--- NOTE | 2021-11-06 10:05 | PCPTNOTE ---
The patient treatment was not able to be completed on 11/06/2021 due to decline in medical status per nursing. Attempted to assist nursing with transferring patient to chair, patient was having increase pain with bed mobility, per RN: transfer is not going to happen and let him rest in bed. Will plan to continue treatment per plan of care.
--- NOTE | 2021-11-06 10:48 | PCSTNOTE ---
Patient on hold for MBS until conference with family.
--- NOTE | 2021-11-06 10:53 | P.PNIM_ITS ---
Progress Note: A&P Assessment and Plan (1) Need for comfort care: Status: Acute Assessment and Plan: Please see subjective * Comfort care measures only * Care coordination facilitating Hospice referral. Plan to discharge to nursing facility with hospice care tomorrow (2) Acute UTI: Code(s): N39.0 - Urinary tract infection, site not specified Status: Acute Assessment and Plan: Urinalysis abnormal on presentation * Urine culture with growth of >100k E coli * Remains afebrile. Slight increase in WBC * Discontinuing antibiotic therapy per patient request (3) SEBASTIAN (acute kidney injury): Code(s): N17.9 - Acute kidney failure, unspecified Status: Acute Assessment and Plan: Creatinine 1 year ago was 0.9 * Elevated up to 1.7 this admission * Renal ultrasound showed normal kidneys without evidence of hydronephrosis * Suspect prerenal etiology * Patient's daughter/POA reports he was hospitalized 1 month ago due to SEBASTIAN. Records from hospitalization have been requested * Requests no further lab monitoring (4) Aspiration pneumonia: Code(s): J69.0 - Pneumonitis due to inhalation of food and vomit Status: Acute Assessment and Plan: Patient with cough and history of dysphagia * CXR on 11/03 showed airspace opacities of the bilateral lower lungs * Per RN, patient has had significant amount of thick sputum production * Managed with IV Unasyn for coverage * Sputum culture negative * Discontinuing antibiotics as above. * Supportive care as needed. Incentive spirometry and Cornet valve (5) Dysphagia: Code(s): R13.10 - Dysphagia, unspecified Status: Acute Assessment and Plan: Patient noted to have dysphagia with liquids and with medications by RN * 11/03: Bedside swallow study completed by speech therapy. He had delayed swallow reflex and cough with consistencies and was made * Repeat bedside swallow study 11/05: recommended pureed diet with moderately thickened liquids * Patient wishes for regular diet. Understands aspiration risk. Will allow for regular liquids and regular soft diet * Aspiration precautions (6) Confusion: Code(s): R41.0 - Disorientation, unspecified Status: Acute Assessment and Plan: Resolved. Patient A&Ox4 today * Onset of confusion 11/04. Patient refused head CT following multiple attempts. Symptoms may have been related to CVA though this cannot be confirmed without CT or MRI. Previous head CT from 11/01 was negative. * May be due to acute infection. Uremia considered however less likely. * Ammonia, TSH, B12, folate within normal limits. (7) Fall: Code(s): W19.XXXA - Unspecified fall, initial encounter Status: Acute Assessment and Plan: Patient fell out of his bed prior to presentation. Fall unwitnessed and unclear mechanics, unknown how long patient was down. Denied precipitating symptoms including dizziness or lightheadedness. * Complained of back and neck pain. Cervical and lumbar CT showed no acute findings * Initial head CT with no acute findings * Fall precautions * CK within normal limits (8) Cervical muscle strain: Qualifiers: Encounter type: initial encounter Qualified Code(s): S16.1XXA - Strain of muscle, fascia and tendon at neck level, initial encounter Code(s): S16.1XXA - Strain of muscle, fascia and tendon at neck level, initial encounter Status: Acute Assessment and Plan: Likely secondary to fall * He does have a history of zeferino
--- NOTE | 2021-11-06 10:53 | PM.IMPN ---
Progress Note: A&P Assessment and Plan (1) Need for comfort care: Status: Acute Assessment and Plan: Please see subjective Comfort care measures only Care coordination facilitating Hospice referral. Plan to discharge to nursing facility with hospice care tomorrow (2) Acute UTI: Code(s): N39.0 - Urinary tract infection, site not specified Status: Acute Assessment and Plan: Urinalysis abnormal on presentation Urine culture with growth of >100k E coli Remains afebrile. Slight increase in WBC Discontinuing antibiotic therapy per patient request (3) SEBASTIAN (acute kidney injury): Code(s): N17.9 - Acute kidney failure, unspecified Status: Acute Assessment and Plan: Creatinine 1 year ago was 0.9 Elevated up to 1.7 this admission Renal ultrasound showed normal kidneys without evidence of hydronephrosis Suspect prerenal etiology Patient's daughter/POA reports he was hospitalized 1 month ago due to SEBASTIAN. Records from hospitalization have been requested Requests no further lab monitoring (4) Aspiration pneumonia: Code(s): J69.0 - Pneumonitis due to inhalation of food and vomit Status: Acute Assessment and Plan: Patient with cough and history of dysphagia CXR on 11/03 showed airspace opacities of the bilateral lower lungs Per RN, patient has had significant amount of thick sputum production Managed with IV Unasyn for coverage Sputum culture negative Discontinuing antibiotics as above. Supportive care as needed. Incentive spirometry and Cornet valve (5) Dysphagia: Code(s): R13.10 - Dysphagia, unspecified Status: Acute Assessment and Plan: Patient noted to have dysphagia with liquids and with medications by RN 11/03: Bedside swallow study completed by speech therapy. He had delayed swallow reflex and cough with consistencies and was made Repeat bedside swallow study 11/05: recommended pureed diet with moderately thickened liquids Patient wishes for regular diet. Understands aspiration risk. Will allow for regular liquids and regular soft diet Aspiration precautions (6) Confusion: Code(s): R41.0 - Disorientation, unspecified Status: Acute Assessment and Plan: Resolved. Patient A&Ox4 today Onset of confusion 11/04. Patient refused head CT following multiple attempts. Symptoms may have been related to CVA though this cannot be confirmed without CT or MRI. Previous head CT from 11/01 was negative. May be due to acute infection. Uremia considered however less likely. Ammonia, TSH, B12, folate within normal limits. (7) Fall: Code(s): W19.XXXA - Unspecified fall, initial encounter Status: Acute Assessment and Plan: Patient fell out of his bed prior to presentation. Fall unwitnessed and unclear mechanics, unknown how long patient was down. Denied precipitating symptoms including dizziness or lightheadedness. Complained of back and neck pain. Cervical and lumbar CT showed no acute findings Initial head CT with no acute findings Fall precautions CK within normal limits (8) Cervical muscle strain: Qualifiers: Encounter type: initial encounter Qualified Code(s): S16.1XXA - Strain of muscle, fascia and tendon at neck level, initial encounter Code(s): S16.1XXA - Strain of muscle, fascia and tendon at neck level, initial encounter Status: Acute Assessment and Plan: Likely secondary to fall He does have a history of myasthenia gravis affecting the neck as well as cervical spondylosis so likely has component of chronic neck pain Supportive care. Analgesics, ice, heat as needed (9) Hypernatremia: Code(s): E87.0 - Hyperosmolality and hypernatremia Status: Acute Assessment and Plan: Sodium 148 today Transitioned to D5 1/2NS this morning but now on comfort care therefore will discontinue IV fluids and allow for oral intake. No need f
[2021-11-06] MEDS: HYDROcodone/acetaminophen (*CRX) 5-325 MG TABLET 1 TAB PO ×2 (14:14→18:45)
[2021-11-06] MEDS: ATROPINE SULFATE 1% OPHTH SOLN 5 ML BOTTLE 1 DROP SUBLINGUAL (14:14)
[2021-11-06] MEDS: LATANOPROST 0.005% OP SOLN 2.5 ML BTL 1 DROP EACH EYE (21:45)
[2021-11-07 05:50] VITALS: BP 133/81; PULSE 74; RESP 18; TEMP 36.4; O2SAT 92
[2021-11-07 07:50] VITALS: O2SAT 98
--- NOTE | 2021-11-07 08:03 | PCSTNOTE ---
Patient is being discharged from [facility] services due to Hospice consult to take place.
[2021-11-07] MEDS: ARTIFICIAL TEARS OPHTH SOLN 15 ML BOTTLE 1 DROP EACH EYE (09:16)
[2021-11-07] MEDS: SILVERGEL (ELTA) 45 ML 1 APPLIC TOPICAL (09:16)
[2021-11-07 13:50] VITALS: BP 148/92; PULSE 85; RESP 18; TEMP 36.6; O2SAT 99
--- NOTE | 2021-11-07 15:39 | P.DS_ITS ---
DS: Admitting Diagnosis Discharge Date 11/07/2021 Admitting Diagnosis UTI DS: Discharge Diagnosis Discharge Diagnosis (1) Need for comfort care: Status: Acute Assessment and Plan: 11/06/2021 patient requested comfort measures with transition to hospice care. Discharged to [facility] hospice. (2) Acute UTI: Code(s): N39.0 - Urinary tract infection, site not specified Status: Acute Assessment and Plan: Urinalysis abnormal on presentation * Urine culture with growth of >100k E coli * Remained afebrile. * Managed with antibiotics which were discontinued based on patient's request for comfort care only (3) SEBASTIAN (acute kidney injury): Code(s): N17.9 - Acute kidney failure, unspecified Status: Acute Assessment and Plan: Creatinine 1 year ago was 0.9 * Elevated up to 1.7 during admission * Renal ultrasound showed normal kidneys without evidence of hydronephrosis * Suspect prerenal etiology * Patient's daughter/POA reports he was hospitalized 1 month ago due to SEBASTIAN. * Requested no further lab monitoring (4) Aspiration pneumonia: Code(s): J69.0 - Pneumonitis due to inhalation of food and vomit Status: Acute Assessment and Plan: Patient with cough and history of dysphagia * CXR on 11/03 showed airspace opacities of the bilateral lower lungs * Managed with IV Unasyn for coverage * Sputum culture negative * Supportive care as needed. Incentive spirometry and Cornet valve (5) Dysphagia: Code(s): R13.10 - Dysphagia, unspecified Status: Acute Assessment and Plan: Patient noted to have dysphagia with liquids and with medications by RN * 11/03: Bedside swallow study completed by speech therapy. He had delayed swallow reflex and cough with consistencies and was made * Repeat bedside swallow study 11/05: recommended pureed diet with moderately thickened liquids * Aspiration precautions implemented * Continue comfort feedings as tolerated (6) Confusion: Code(s): R41.0 - Disorientation, unspecified Status: Acute Assessment and Plan: * Onset of confusion 11/04. Patient refused head CT following multiple attempts. Symptoms may have been related to CVA though this cannot be confirmed without CT or MRI. Previous head CT from 11/01 was negative. * May be due to acute infection. Uremia considered however less likely. * Ammonia, TSH, B12, folate within normal limits. * Patient A&Ox4 at time of discharge (7) Fall: Code(s): W19.XXXA - Unspecified fall, initial encounter Status: Acute Assessment and Plan: Patient fell out of his bed prior to presentation. Fall unwitnessed and unclear mechanics, unknown how long patient was down. Denied precipitating symptoms including dizziness or lightheadedness. * Complained of back and neck pain. Cervical and lumbar CT showed no acute findings * Initial head CT with no acute findings * Fall precautions implemented * CK within normal limits (8) Cervical muscle strain: Qualifiers: Encounter type: initial encounter Qualified Code(s): S16.1XXA - Strain of muscle, fascia and tendon at neck level, initial encounter Code(s): S16.1XXA - Strain of muscle, fascia and tendon at neck level, initial encounter Status: Acute Assessment and Plan: Likely secondary to fall * He does have a history of myasthenia gravis affecting the neck as well as cervical spondylosis so likely has component of chronic neck pain * Suppo
--- NOTE | 2021-11-07 15:39 | PM.DS ---
DS: Admitting Diagnosis Discharge Date 11/07/2021 Admitting Diagnosis UTI DS: Discharge Diagnosis Discharge Diagnosis (1) Need for comfort care: Status: Acute Assessment and Plan: 11/06/2021 patient requested comfort measures with transition to hospice care. Discharged to [facility] under [facility] hospice. (2) Acute UTI: Code(s): N39.0 - Urinary tract infection, site not specified Status: Acute Assessment and Plan: Urinalysis abnormal on presentation Urine culture with growth of >100k E coli Remained afebrile. Managed with antibiotics which were discontinued based on patient's request for comfort care only (3) SEBASTIAN (acute kidney injury): Code(s): N17.9 - Acute kidney failure, unspecified Status: Acute Assessment and Plan: Creatinine 1 year ago was 0.9 Elevated up to 1.7 during admission Renal ultrasound showed normal kidneys without evidence of hydronephrosis Suspect prerenal etiology Patient's daughter/POA reports he was hospitalized 1 month ago due to SEBASTIAN. Requested no further lab monitoring (4) Aspiration pneumonia: Code(s): J69.0 - Pneumonitis due to inhalation of food and vomit Status: Acute Assessment and Plan: Patient with cough and history of dysphagia CXR on 11/03 showed airspace opacities of the bilateral lower lungs Managed with IV Unasyn for coverage Sputum culture negative Supportive care as needed. Incentive spirometry and Cornet valve (5) Dysphagia: Code(s): R13.10 - Dysphagia, unspecified Status: Acute Assessment and Plan: Patient noted to have dysphagia with liquids and with medications by RN 11/03: Bedside swallow study completed by speech therapy. He had delayed swallow reflex and cough with consistencies and was made Repeat bedside swallow study 11/05: recommended pureed diet with moderately thickened liquids Aspiration precautions implemented Continue comfort feedings as tolerated (6) Confusion: Code(s): R41.0 - Disorientation, unspecified Status: Acute Assessment and Plan: Onset of confusion 11/04. Patient refused head CT following multiple attempts. Symptoms may have been related to CVA though this cannot be confirmed without CT or MRI. Previous head CT from 11/01 was negative. May be due to acute infection. Uremia considered however less likely. Ammonia, TSH, B12, folate within normal limits. Patient A&Ox4 at time of discharge (7) Fall: Code(s): W19.XXXA - Unspecified fall, initial encounter Status: Acute Assessment and Plan: Patient fell out of his bed prior to presentation. Fall unwitnessed and unclear mechanics, unknown how long patient was down. Denied precipitating symptoms including dizziness or lightheadedness. Complained of back and neck pain. Cervical and lumbar CT showed no acute findings Initial head CT with no acute findings Fall precautions implemented CK within normal limits (8) Cervical muscle strain: Qualifiers: Encounter type: initial encounter Qualified Code(s): S16.1XXA - Strain of muscle, fascia and tendon at neck level, initial encounter Code(s): S16.1XXA - Strain of muscle, fascia and tendon at neck level, initial encounter Status: Acute Assessment and Plan: Likely secondary to fall He does have a history of myasthenia gravis affecting the neck as well as cervical spondylosis so likely has component of chronic neck pain Supportive care. Analgesics, ice, heat as needed DS: Summary Hospital Course Hospital Course: Date of admission: 11/01/2021 Date of discharge: 11/07/2021 Kerwin Ellison is 86-year-old male with a history of hypertension, coronary artery disease, CHF, hypothyroidism, and atrial fibrillation on chronic anticoagulation who presented to the emergency department on 11/01/2021 after having a fall at home that resulted in neck and back pain. His daug
[2021-11-07] MEDS: HYDROcodone/acetaminophen (*CRX) 5-325 MG TABLET 1 TAB PO (15:42)
[2021-11-07 15:45] LABS: EDCOVIDSCREEN Negative (Negative)
[2021-11-08 14:27] LABS: Haptoglobin 222 mg/dL (43-212)
== END 2021-11-07 21:07 | disposition hospice, inpatient (51) | DRG 689 ==
LOC: ANHED 21:42 → ANH3MED 22:04
PROVIDERS: Internal Medicine; Nurse Practitioner; Admitting Provider Internal Medicine; Emergency Provider Family Medicine; PCP Family Medicine; Visit Provider Physician Assistant
DX: N39.0 Urinary tract infection, site not specified (principal); J69.0 Pneumonitis due to inhalation of food and vomit; N17.9 Acute kidney failure, unspecified; E87.0 Hyperosmolality and hypernatremia; B96.20 Unspecified Escherichia coli [E. coli] as the cause of diseases classified elsewhere; Z20.822 Contact with and (suspected) exposure to COVID-19; R13.10 Dysphagia, unspecified; R41.0 Disorientation, unspecified; R26.9 Unspecified abnormalities of gait and mobility; S16.1XXA Strain of muscle, fascia and tendon at neck level, initial encounter; S39.012A Strain of muscle, fascia and tendon of lower back, initial encounter; W19.XXXA Unspecified fall, initial encounter; I25.10 Atherosclerotic heart disease of native coronary artery without angina pectoris; I48.91 Unspecified atrial fibrillation; E78.2 Mixed hyperlipidemia; M15.9 Polyosteoarthritis, unspecified; M47.892 Other spondylosis, cervical region; E80.6 Other disorders of bilirubin metabolism; E03.9 Hypothyroidism, unspecified; Z96.659 Presence of unspecified artificial knee joint; Z79.01 Long term (current) use of anticoagulants; Z87.891 Personal history of nicotine dependence; Z51.5 Encounter for palliative care; I11.0 Hypertensive heart disease with heart failure; I50.9 Heart failure, unspecified; Z66 Do not resuscitate; R32 Unspecified urinary incontinence
CPT/HCPCS: 36415; 36600; 70450; 71045; 72110; 72125; 76775; 80048; 80053; 80076; 81001; 82140; 82550; 82570; 82607; 82746; 82805; 83010; 83605; 83615; 83735; 84295; 84300; 84439; 84443; 84480; 84550; 85025; 85055; 87040; 87070; 87086; 87186; 87205; 87426; 92610; 93005; 94667; 96361; 96374; 96375; 96376; 97110; 97116; 97161; 97166; 97530; 99285; A9270; C9803; J0295; J0696; J1650; J1940; J2270; J2405; J3370; J7030; J7120